=== PATIENT | female | born 1980 | race Two or more races ===

== ENCOUNTER 2017-04-10 10:25 | Observation (INO) | payer MEDICAID | END 2017-04-10 12:25 | disposition home or self-care (01) | DRG 566 | LOC: LDRP 10:25 | PROVIDERS: ADMIT Obstetrics & Gynecology; ATTEND Obstetrics & Gynecology | DX: O36.8130 Decreased fetal movements, third trimester, not applicable or unspecified (principal); O24.419 Gestational diabetes mellitus in pregnancy, unspecified control; Z3A.38 38 weeks gestation of pregnancy; O62.9 Abnormality of forces of labor, unspecified | CPT/HCPCS: 36415; 59025; 76818; 81002; 82962; 83036; G0378 ==

== ENCOUNTER 2017-04-17 17:30 | Observation (INO) | payer MEDICAID ==
[2017-04-21] MEDS ORDERED: PRENCAP61 PO (06:48)
== END 2017-04-17 20:15 | disposition home or self-care (01) | DRG 566 ==
LOC: LDRP 17:30
PROVIDERS: ADMIT Specialist; ATTEND Specialist
DX: O62.9 Abnormality of forces of labor, unspecified (principal); O26.893 Other specified pregnancy related conditions, third trimester; N89.8 Other specified noninflammatory disorders of vagina; Z3A.39 39 weeks gestation of pregnancy
CPT/HCPCS: 59025; 81002; 82948; 82962; G0378